=== PATIENT | female | born 1995 | race Asian ===

== ENCOUNTER 2016-07-07 19:16 | Inpatient (IN) | payer OTHER ==
[~2016-07-07] VITALS: Ht 160 cm; Wt 66.0 kg
[2016-07-07] MEDS ORDERED: CHOL100010 PO (19:51)
[2016-07-07] MEDS ORDERED: CYAN100073 PO (19:51)
[2016-07-07] MEDS ORDERED: LORA-741 PO (19:51)
--- NOTE | 2016-07-07 20:09 | EMERGENCY ROOM VISIT NOTE ---
History Report prepared by [place]: Cathy Anguiano Under the Supervision of: Dr. Barney Whyte M.D. First contact with patient: 19:34 Chief Complaint: MENTAL HEALTH EVALUATION Stated Complaint: SUICIDAL THOUGHTS,EXTREME RAGE,ANXIETY,DEPRESSION History of Present Illness The patient is a 20 year old female who presents to the Emergency Room with complaints of worsening suicidal ideations that started two weeks ago. The patient has a plan to overdose on pills. The patient states that she has been stressed about a lot of things and nothing specific has caused her to be more depressed recently. 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 The patient states that she ate a small amount today. The patient has been going to the [facility] because [facility] had no availability. She states that she is also seeing a psychiatrist downtown. Source of History: patient Onset: two weeks ago Position: head Quality: other (suicidal ideation) Timing: worsening Note: depression Review of Systems See HPI for pertinent positives & negatives. A total of 10 systems reviewed and were otherwise negative. Past Medical & Surgical Medical Problems: (1) No pertinent past medical history Surgical Problems: (1) H/O heart surgery Family History No pertinent family history Social History Smoking Status: Current Every Day Smoker Housing Status: lives with roommate Occupation Status: [employer] student Current/Historical Medications Scheduled Cholecalciferol (Vitamin D), 1,000 UNIT PO DAILY Cyanocobalamin (B12), 1,000 MCG PO DAILY Lorazepam (Ativan), 0.5 MG PO BID Allergies Coded Allergies: No Known Allergies (Unverified , 07/07/16) Physical Exam Vital Signs Date Time Temp Pulse Resp B/P Pulse Ox O2 Delivery O2 Flow Rate FiO2 07/07/16 19:21 36.6 83 16 133/90 97 Room Air Physical Exam GENERAL: Patient is a healthy-appearing well-nourished female HEAD: Normocephalic atraumatic EYES: Ocular movements intact pupils equal and react to light OROPHARYNX mucous membranes are moist no exudates present no erythema or edema present NECK: Supple no nuchal rigidity CHEST: Good equal expansion LUNGS: Clear and equal to auscultation CARDIAC: Normal S1 and S2 ABDOMEN: Soft nontender no guarding BACK: No CVA tenderness EXTREMITIES: No pain upon palpation normal muscle strength in all groups no clubbing cyanosis or edema NEURO: Patient is following commands is answering questions appropriately. Alert and oriented x3 Cranial Nerves 2-12 grossly intact PSYCH: Admits to suicidal ideation Medical Decision & Procedures Laboratory Results 07/07/16 19:58 Red Blood Count 5.04, Mean Corpuscular Volume 86.7, Mean Corpuscular Hemoglobin 29.8, Mean Corpuscular Hemoglobin Concent 34.3, Mean Platelet Volume 9.6, Neutrophils (%) (Auto) 71.4, Lymphocytes (%) (Auto) 20.3, Monocytes (%) (Auto) 7.3, Eosinophils (%) (Auto) 0.4, Basophils (%) (Auto) 0.3, Neutrophils # (Auto) 5.29, Lymphocytes # (Auto) 1.50, Monocytes # (Auto) 0.54, Eosinophils # (Auto) 0.03, Basophils # (Auto) 0.02 07/07/16 19:58 Test 07/07/16 19:58 07/07/16 20:20 White Blood Count 7.40 K/uL (4.8-10.8) Red Blood Count 5.04 M/uL (4.2-5.4) Hemoglobin 15.0 g/dL (12.0-16.0) Hematocrit 43.7 % (37-47) Mean Corpuscular Volume 86.7 fL (80-100) Mean Corpuscular Hemoglobin 29.8 pg (25-34) Mean Corpuscular Hemoglobin Concent 34.3 g/dl (32-36) Platelet Count 307 K/uL (130-400) Mean Platelet Volume 9.6 fL (7.4-10.4) Neutrophils (%) (Auto) 71.4 % Lymphocytes (%) (Auto) 20.3 % Monocytes (%) (Auto) 7.3 % Eosinophils (%) (Auto) 0.4 % Basophils (%) (Auto) 0.3 % Neutrophils # (Auto) 5.29 K/uL (1.4-6.5) Lymphocytes # (Auto) 1.50 K/uL (1.2-3.4) Monocytes # (Auto) 0.54 K/uL (0.11-0.59) Eosinophils # (Auto) 0.03 K/uL (0-0.5) Basophils # (Auto) 0.02 K/uL (0-0.2) RDW Standard Deviation 40.6 fL (36.4-46.3) RDW Coefficient of Variation 12.7 % (11.5-14.5) Immature Granulocyte % (Auto) 0.3 % Immature Granulocyte # (Auto) 0.02 K/uL (0.00-0.02) Anion Gap 13.0 mmol/L (3-11) Est Creatinine Clear Calc Drug Dose 105.0 ml/min Estimated GFR () 126.8 Estimated GFR (Non- 109.4 BUN/Creatinine Ratio 12.8 (10-20) Calcium Level 8.7 mg/dl (8.5-10.1) Total Bilirubin 1.2 mg/dl (0.2-1) Direct Bilirubin 0.2 mg/dl (0-0.2) Aspartate Amino Transf (AST/SGOT) 9 U/L (15-37) Alanine Aminotransferase (ALT/SGPT) 15 U/L (12-78) Alkaline Phosphatase 46 U/L (45-117) Total Protein 7.7 gm/dl (6.4-8.2) Albumin 3.9 gm/dl (3.4-5.0) Globulin 3.8 gm/dl (2.5-4.0) Albumin/Globulin Ratio 1.0 (0.9-2) Thyroid Stimulating Hormone (TSH) 1.620 uIu/ml (0.300-4.500) Ethyl Alcohol mg/dL < 3.0 mg/dl (0-3) Urine Color YELLOW Urine Appearance CLEAR (CLEAR) Urine pH 5.5 (4.5-7.5) Urine Specific [place] 1.012 (1.000-1.030) Urine Protein NEG (NEG) Urine Glucose (UA) NEG (NEG) Urine Ketones 1+ (NEG) Urine Occult Blood 1+ (NEG) Urine Nitrite NEG (NEG) Urine Bilirubin NEG (NEG) Urine Urobilinogen NEG (NEG) Urine Leukocyte Esterase NEG (NEG) Urine WBC (Auto) 0 /hpf (0-5) Urine RBC (Auto) 0-4 /hpf (0-4) Urine Hyaline Casts (Auto) 0 /lpf (0-5) Urine Epithelial Cells (Auto) 5-10 /lpf (0-5) Urine Bacteria (Auto) NEG (NEG) Urine Test NEG (NEG) Urine Opiates Screen NEG (NEG) Urine Methadone, Qualitative NEG (NEG) Urine Barbiturates NEG (NEG) Urine Phencyclidine (PCP) Level NEG (NEG) Ur Amphetamine/Methamphetamine NEG (NEG) MDMA (Ecstasy) Screen NEG (NEG) Urine Benzodiazepines Screen NEG (NEG) Urine Cocaine Metabolite NEG (NEG) Urine Marijuana (THC) POS (NEG) Labs reviewed by ED physician. ED Course 1935: Past medical records reviewed. The patient was evaluated in room A7. A complete history and physical examination was performed. 2048: I informed the psych case manager specialist that the patient is medically clear. 2226: The psych case manager specialist informed me that the patient is accepted at [address] [place] [address]. Medical Decision Differential diagnosis: Etiologies such as mood disorder, infection, hypoglycemia, electrolyte abnormalities, cardiac sources, intracerebral event, toxicologic, neurologic, as well as others were entertained. This is a 20-year-old female who presents emergency department complaining of suicidal ideation. Based on the patient's complaints laboratory work was obtained. I do believe that the patient is medically clear. She was discussed with 3 S. who agreed to admit the patient. Patient was in agreement with the treatment plan. Impression Primary Impression: Mood disorder Scribe Attestation The scribe's documentation has been prepared under my direction and personally reviewed by me in its entirety. I confirm that the note above accurately reflects all work, treatment, procedures, and medical decision making performed by me. Departure Information Dispostion [facility] ([address] [place] [address]) Patient Instructions [facility]
[2016-07-07 20:14] LABS: BASO % 0.3 %; BASO ABS # 0.02 K/uL (0-0.2); COMPLETE YES; EOS % 0.4 %; HEMATOCRIT 43.7 % (37-47); IG% 0.3 %; LYMPH % 20.3 %; MEAN CELL VOLUME 86.7 fL (80-100); MEAN CORPUSCULAR HEMOGLOBIN 29.8 pg (25-34); MEAN CORPUSCULAR HGB CONC 34.3 g/dl (32-36); MEAN PLATELET VOLUME 9.6 fL (7.4-10.4); MONO % 7.3 %; NEUT % 71.4 %; PLATELET COUNT 307 K/uL (130-400); RED BLOOD COUNT 5.04 M/uL (4.2-5.4)
[2016-07-07 20:35] LABS: MANUAL MICROSCOPIC REQUIRED? NO; REVIEW REQ? NO; URINE APPEARANCE CLEAR (CLEAR); URINE BILIRUBIN NEG (NEG); URINE COLOR YELLOW; URINE NITRITE NEG (NEG); URINE PH 5.5 (4.5-7.5); URINE SPECIFIC GRAVITY 1.012 (1.000-1.030); UROBILINOGEN NEG (NEG)
[2016-07-07 20:41] LABS: BUN/CREATININE RATIO 12.8 (10-20); CALCIUM 8.7 mg/dl (8.5-10.1); CREATININE 0.78 mg/dl (0.60-1.20); POTASSIUM 3.8 mmol/L (3.5-5.1)
[2016-07-07 20:44] LABS: BENZODIAZEPINE, URINE NEG (NEG); COCAINE,URINE NEG (NEG); PHENCYCLIDINE, URINE NEG (NEG)
[2016-07-07 20:52] LABS: THYROID STIMULATING HORMONE 1.62 uIu/ml (0.300-4.500)
[2016-07-07] MEDS ORDERED: NURSING VERBAL MED ORDER ONE (21:45)
[2016-07-07] MEDS ORDERED: SODIUM CHLORIDE 0.65% NA SOLN 45 ML (OCEAN) PRN (22:00)
[2016-07-07] MEDS ORDERED: ACETAMINOPHEN 325 MG TAB PO PRN (22:00)
[2016-07-07] MEDS ORDERED: MAGNESIUM HYDROXIDE SUSP 30 ML UDC PO PRN (22:00)
[2016-07-07] MEDS ORDERED: ALUMINUM/MAGNESIUM SUSP 30 ML UDC PO PRN (22:00)
[2016-07-07] MEDS ORDERED: BISMUTH SUBSALICYLATE PER ML OMNICELL CHARGE PO PRN (22:00)
[2016-07-07] MEDS ORDERED: hydrOXYzine HCL 25 MG TAB PO PRN (22:00)
[2016-07-07 22:05] VITALS: O2SAT 98
[2016-07-07 23:48] VITALS: BP 127/84; PULSE 66; TEMP 36.6; Ht 160 cm; Wt 66.0 kg
[2016-07-08 07:06] VITALS: BP_SYST 101; BP_SYST 102; BP_DIAS 64; BP_DIAS 67; PULSE 63; PULSE 70; TEMP 36.8
[2016-07-08 14:05] VITALS: BP 116/76; PULSE 92
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
[2016-07-08 21:12] VITALS: BP 117/83; PULSE 73
[2016-07-09 07:09] VITALS: BP_SYST 110; BP_SYST 115; BP_DIAS 72; BP_DIAS 78; PULSE 51; PULSE 57; TEMP 36.5
[2016-07-09 07:19] LABS: CHOLESTEROL/HDL RATIO 2.1
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
[2016-07-09] MEDS ORDERED: ARIPIprazole TAB 5 MG TAB PO ONE (14:00)
[2016-07-09 14:10] VITALS: BP 111/78; PULSE 81
[2016-07-09 18:16] VITALS: BP 108/76; PULSE 68; TEMP 36.5
[2016-07-09] MEDS: hydrOXYzine HCL 25 MG TAB PO PRN (21:42)
[2016-07-10 07:06] VITALS: BP_SYST 110; BP_SYST 96; BP_DIAS 60; BP_DIAS 74; PULSE 105; PULSE 58; TEMP 36.9
[2016-07-10] MEDS: ARIPIprazole TAB 5 MG TAB PO SCH ×2 (09:00→11:51)
[2016-07-10] MEDS ORDERED: ONDANSETRON 4 MG TAB PO PRN (11:15)
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
[2016-07-10 22:05] VITALS: BP 114/78; PULSE 80
[2016-07-10] MEDS: hydrOXYzine HCL 25 MG TAB PO PRN (23:33)
[2016-07-11 07:00] VITALS: BP_SYST 104; BP_SYST 109; BP_DIAS 65; BP_DIAS 69; PULSE 56; PULSE 92; TEMP 36.8
[2016-07-11] MEDS: ARIPIprazole TAB 5 MG TAB PO SCH (08:57)
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
[2016-07-11] MEDS: hydrOXYzine HCL 25 MG TAB PO PRN (21:55)
[2016-07-12 07:04] VITALS: BP_SYST 110; BP_SYST 115; BP_DIAS 72; BP_DIAS 76; PULSE 71; PULSE 94; TEMP 36.4
[2016-07-12] MEDS: ARIPIprazole TAB 5 MG TAB PO SCH (09:10)
[2016-07-12] MEDS ORDERED: ABL5 PO (12:49)
[2016-07-12] MEDS ORDERED: LMC25 PO (12:49)
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
[2016-07-12] MEDS ORDERED: DESTROY THIS MEDICATION ONE (14:30)
== END 2016-07-12 14:23 | disposition home or self-care (01) | DRG 885 ==
LOC: ENRESERVTM → ENRESERVDT → C.EDB 19:18 → C.MHU 21:37
PROVIDERS: ADMIT Psychiatry & Neurology Psychiatry; ATTEND Psychiatry & Neurology Psychiatry
DX: F31.81 Bipolar II disorder (principal); R45.851 Suicidal ideations; F41.1 Generalized anxiety disorder; F17.210 Nicotine dependence, cigarettes, uncomplicated; F43.10 Post-traumatic stress disorder, unspecified; F12.10 Cannabis abuse, uncomplicated; Z91.410 Personal history of adult physical and sexual abuse; Z79.899 Other long term (current) drug therapy

== ENCOUNTER 2016-08-15 12:33 | Inpatient (IN) | payer OTHER ==
[~2016-08-15] VITALS: Ht 162.6 cm; Wt 63.5 kg
[~2016-08-15 12:33] MED LIST: ABL5 PO; CHOL100010 PO; CYAN100073 PO; LMC25 PO
[2016-08-15 13:33] LABS: URINE APPEARANCE CLEAR (CLEAR); URINE BILIRUBIN NEG (NEG); URINE COLOR DK YELLOW; URINE EPITHELIAL CELL AUTO 20-30 /lpf (0-5); URINE NITRITE NEG (NEG); URINE SPECIFIC GRAVITY 1.024 (1.000-1.030); UROBILINOGEN NEG (NEG); ZZUR CULT IF INDIC CLEAN CATCH NO
[2016-08-15 13:37] LABS: BASO % 0.6 %; BASO ABS # 0.03 K/uL (0-0.2); COMPLETE YES; HEMATOCRIT 39.9 % (37-47); LYMPH % 40.9 %; LYMPH ABS # 2.05 K/uL (1.2-3.4); MEAN CELL VOLUME 85.6 fL (80-100); MEAN CORPUSCULAR HEMOGLOBIN 29.4 pg (25-34); MEAN CORPUSCULAR HGB CONC 34.3 g/dl (32-36); MEAN PLATELET VOLUME 9.2 fL (7.4-10.4); MONO % 8.6 %; NEUT % 48.9 %; PLATELET COUNT 269 K/uL (130-400); RED BLOOD COUNT 4.66 M/uL (4.2-5.4); WHITE BLOOD COUNT 5.01 K/uL (4.8-10.8)
[2016-08-15 13:41] LABS: MANUAL MICROSCOPIC REQUIRED? NO; REVIEW REQ? NO
[2016-08-15] MEDS ORDERED: CLON0.5T3 PO ×3 (13:41→17:19)
[2016-08-15] MEDS ORDERED: LAMO100T16 PO (13:41)
[2016-08-15 13:48] LABS: BENZODIAZEPINE, URINE NEG (NEG); COCAINE,URINE NEG (NEG); PHENCYCLIDINE, URINE NEG (NEG)
[2016-08-15 13:57] LABS: BUN/CREATININE RATIO 10.3 (10-20); CALCIUM 9.1 mg/dl (8.5-10.1); CREATININE 0.76 mg/dl (0.60-1.20); POTASSIUM 3.7 mmol/L (3.5-5.1)
[2016-08-15 14:01] LABS: ACETAMINOPHEN < 2 ug/ml (10-30)
[2016-08-15 14:07] LABS: ALB/GLOB RATIO 1.1 (0.9-2); THYROID STIMULATING HORMONE 1.96 uIu/ml (0.300-4.500)
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
[2016-08-15 17:48] VITALS: O2SAT 99
[2016-08-15] MEDS ORDERED: BISMUTH SUBSALICYLATE PER ML OMNICELL CHARGE PO PRN (18:00)
[2016-08-15] MEDS ORDERED: ALUMINUM/MAGNESIUM SUSP 30 ML UDC PO PRN (18:00)
[2016-08-15] MEDS ORDERED: hydrOXYzine HCL 25 MG TAB PO PRN ×2 (18:00)
[2016-08-15] MEDS ORDERED: CLONAZEPAM 0.5 MG TAB PO PRN (18:00)
[2016-08-15] MEDS ORDERED: ACETAMINOPHEN 325 MG TAB PO PRN (18:00)
[2016-08-15] MEDS ORDERED: MAGNESIUM HYDROXIDE SUSP 30 ML UDC PO PRN (18:00)
[2016-08-15] MEDS ORDERED: SODIUM CHLORIDE 0.65% NA SOLN 45 ML (OCEAN) PRN (18:00)
[2016-08-15 18:18] VITALS: BP 91/49; PULSE 91; TEMP 36.9; Ht 162.6 cm; Wt 63.5 kg
[2016-08-16 06:57] VITALS: BP_SYST 95; BP_DIAS 58; BP_DIAS 62; PULSE 56; PULSE 93; TEMP 36.4
[2016-08-16] MEDS: CHOLECALCIFEROL 1000 INTER.UNIT TAB PO SCH (09:26)
[2016-08-16] MEDS: CYANOCOBALAMIN 500 MCG TAB (VIT B-12) PO SCH (09:26)
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
[2016-08-17 06:51] VITALS: BP_SYST 106; BP_SYST 98; BP_DIAS 63; BP_DIAS 70; PULSE 58; PULSE 94; TEMP 36.9
[2016-08-17] MEDS: CHOLECALCIFEROL 1000 INTER.UNIT TAB PO SCH (08:30)
[2016-08-17] MEDS: CYANOCOBALAMIN 500 MCG TAB (VIT B-12) PO SCH (08:30)
--- NOTE | 2016-08-17 09:35 | Psychiatric Progress Notes ---
Progress Note Date of Service Aug 17, 2016. Interval History Jess Hamilton is a 20-year-old female who currently lives in [place] with roommates. Jess Hamilton was admitted on a 201 voluntary with a backup 302 petition. Patient is admitted from home. The patient was brought to the ED by the police , sent from [facility]. Chief Complaint "Really good, better". Subjective Patient was seen & assessed interval progress reviewed with nursing. Staff reports she is going to groups and participating, has been reporting improved mood, has been on the phone a lot with her friends, and had multiple visitors last night. She is considering withdrawing from school and getting a job. The patient states that her mood is improved since admission, she is trying to exercise here and to work on healthy coping skills, and is writing "to get my emotions out, it's a good outlet." She is interested in learning more about CBT , and says she wants to meet one-on-one with the counselor today. She says she is trying to "take my treatment really seriously, take better care of myself." She has multiple goals to work on here, stating that she wants "to get into long -term counseling, work on a safety plan, and have a meeting with my sister." She does not want to involve her parents in treatment, but thinks her sister is a good support. She has also been working on broadening her support network within her group of friends locally, and feels this has been helpful. Denies suicidal thoughts here, stating that she was suicidal on admission, and thinks this was due to a combination of factors, as she was stressed about relationship problems and was drinking. She admits that she has episodic suicidal thoughts, and expects that she will again have suicidal thoughts at times after discharge, especially when feeling overwhelmed by stressors, and wants to work on ways to manage these safely. She agrees that she should not drink alcohol, and has already discussed this with her friends, who she thinks will help support her in this decision. She reports episodic anxiety here, and is aware that her benzodiazepines have been stopped. She is upset with her experience with outpatient therapy, stating that she was late for her first therapy appointment and had to reschedule, but then missed the next appointment as a friend of hers had a crisis. She says "I really, really tried to get in there, it was just the circumstances." She wants to give feedback to staff here that she is "emotionally exhausted" after having to repeat her story multiple times (in the emergency room, to different staff, etc.). She sees herself as an advocate for others and feels that the system could be better. She also wants to give feedback that when she was here last time, student [employer] was contacted about her hospitalization, but this information was not passed onto her professors, and she then had to go through a process of informing her professors, which she found stressful. She says she's been working with student Niwa and other offices through the [employer] regarding her mental health and academic issues, and plans to continue working with them after discharge. She was encouraged to call student affairs herself, inform them about her hospitalization, and to schedule an appointment to follow up with them after discharge. She feels that she will be ready for discharge by tomorrow, and does not wish to rescind her 72 hour notice or stay for ongoing treatment. Sleep Information Total Hours of Sleep: 6.00 Meal Information Percent of Breakfast Consumed: 100 Percent of Lunch Consumed: 50 Percent of Dinner Consumed: 100 Mental Status Exam During interview pt is: alert and oriented, cooperative Appearance: appropriately dressed, appropriately groomed Eye contact is: good Motor behavior is: steady gait & station, no abnormal motor movements Speech: normal in rate, rhythm & volume Affect: euthymic, other (congruent with stated mood) Mood is: other ("good") Thought process: goal directed Thought content: reality based without delusions Suicidal thought are: denied Homicidal thoughts are: denied Hallucinations: denies auditory, denies visual Cognition: memory grossly intact, attention grossly intact Intelligence estimated to be: average Insight: fair Judgement: fair Impression 20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 She drank alcohol and overdosed on her Klonopin, admitting that it was with thoughts of self-harm. Increased Lamictal to 50 mg a.m. and 75 mg at bedtime to target mood instability and depression. If depression persists after Lamictal therapeutic, could consider low-dose SSRI. We have discussed the importance of committing to treatment including therapy and making that a priority in her life. She has been going to groups which is an improvement from her last hospitalization. She is also requesting individual therapy while here. We will coordinate her outpatient care with her current psychiatrist and will make attempts to find her a therapist again as well. Family meeting by phone was held with her father during her last hospitalization, but she is declining involvement of her parents this time, and is requesting a meeting with her sister. She is considering withdrawing from school for this semester and restarting again in summer and this will continue to require discussion. She has submitted her 72 hour notice to withdraw from treatment and we will need to continue to gather information toward the need for further inpatient care. There is a 302 petition from the staff at [facility]. We will consider using this for further commitment if she does not revoke her notice and/or does not engage in treatment in a way that will allow us to mitigate risk factors. Plan (1) Severe depressed bipolar II disorder without psychotic features 08/16 - Increase lamictal to 50 mg. AM and 75 mg HS - q 15 min checks for safety - Encourage group and individual counseling. Will lock door during groups if not attending as a means to facilitate attendance - Coordinate with Dr. Aldridge - Assist the patient to find a therapist - Assist the patient to learn and utilize healthy coping strategies. - Will not renew prn klonopin in view of OD, cannabis and alcohol abuse. Coordinate this with Dr. Aldridge. 08/17 - Continue lamotrigine, work on coping skills, and patient would like to work on CBT techniques. - Refer for therapy. Called Dr. Aldridge and left message regarding hospitalization and treatment thus far. - Patient feels she will be ready for discharge tomorrow when her 72 hour notice expires, but will continue to assess the need for ongoing treatment. - Is attending groups and participating. - Declining meeting with parents, but willing to have one with sister. (2) Alcohol abuse 08/16 - Recommend abstinence. - The audit score is 4. - Counseled about the detrimental effects of alcohol to mood. 08/17 - Refer for outpatient therapy to address substance abuse and ood. (3) Cannabis abuse 08/16 - Recommend abstinence - Counseled about the detrimental effects of cannabis to mood and motivation. Discharge / Aftercare Planning Therapist: Name: None Visit Code E&M Code: 74499 Inventory Assets Strengths: Intelligence, cares for friends Needs: To engage in outpatient therapy Risk Factors Assessment : No /single/: Yes Higher / Fall in social status: No Health problems: No Mental Health Diagnoses: Yes Substance use disorders: Yes Previous attempt: No Previous psychiatric stay: Yes Hopelessness: No Smoker: No Protective Factors Assessment Congregation beliefs: No : No Responsible for young children: No Employed: No Stable relationships: Yes Supportive family: Yes Good rapport with provider: Yes Data Vital Signs Last 24 Hrs: Date Time Temp Pulse Resp B/P Pulse Ox O2 Delivery O2 Flow Rate FiO2 08/17/16 06:51 36.9 58 16 98/63 94 106/70 Meds Administered Last 24 Hrs: Meds Administered (Past 24Hrs) Medications (Trade) Dose Ordered Sig/Cory Route Start Time Stop Time Status Last Admin Dose Admin Cholecalciferol (Vitamin D Tab) 1,000 inter.unit DAILY PO 08/16/16 09:00 09/15/16 08:59 08/17/16 08:30 1,000 INTER.UNIT Lamotrigine (Lamictal Tab) 50 mg BID PO 08/15/16 21:00 08/16/16 10:34 DC 08/16/16 09:26 50 MG Cyanocobalamin (Vitamin B-12 Tab) 1,000 mcg DAILY PO 08/16/16 09:00 09/15/16 08:59 08/17/16 08:30 1,000 MCG Lamotrigine (Lamictal Tab) 50 mg QAM PO 08/17/16 09:00 09/16/16 08:59 08/17/16 08:30 50 MG Lamotrigine (Lamictal Tab) 75 mg HS PO 08/16/16 22:00 09/15/16 21:59 08/16/16 21:32 75 MG
[2016-08-17 10:49] VITALS: BP 128/82; PULSE 111; TEMP 36.9
[2016-08-18 06:45] VITALS: BP_SYST 103; BP_SYST 111; BP_DIAS 64; PULSE 72; PULSE 79; TEMP 36.8
[2016-08-18] MEDS: CYANOCOBALAMIN 500 MCG TAB (VIT B-12) PO SCH (08:58)
[2016-08-18] MEDS: CHOLECALCIFEROL 1000 INTER.UNIT TAB PO SCH (08:58)
[2016-08-18] MEDS ORDERED: LMC25 PO (09:11)
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
[2016-08-19 15:31] LABS: SYNTHETIC CANNABINOIDS QL URIN NEGATIVE (Negative)
== END 2016-08-18 11:00 | disposition home or self-care (01) | DRG 885 ==
LOC: ENRESERVDT → ENRESERVTM → C.EDB 12:34 → C.MHU 17:34
PROVIDERS: ADMIT Psychiatry & Neurology Psychiatry; ATTEND Psychiatry & Neurology Psychiatry
DX: F31.81 Bipolar II disorder (principal); R45.851 Suicidal ideations; T50.902A Poisoning by unspecified drugs, medicaments and biological substances, intentional self-harm, initial encounter; F12.10 Cannabis abuse, uncomplicated; F10.10 Alcohol abuse, uncomplicated; Z79.899 Other long term (current) drug therapy